=== PATIENT | male | born 1925 | race Caucasian/White ===

== ENCOUNTER 2017-02-27 11:03 | Emergency (ER) | payer MEDICARE, BC ==
[~2017-02-27] VITALS: Ht 172.7 cm; Wt 70.0 kg
[2017-02-27] MEDS ORDERED: EQ ASPIRIN325 M2 PO (11:30)
[2017-02-27] MEDS ORDERED: TERAZOSIN5 MG PO (11:30)
[2017-02-27] MEDS ORDERED: LISINOPRIL20 MG PO (11:32)
[2017-02-27] MEDS ORDERED: SIMVASTATIN40 MG PO (11:32)
[2017-02-27 11:43] LABS: URINE BILIRUBIN - DIPSTICK NEGATIVE (NEGATIVE); URINE BLOOD DIPSTICK NEGATIVE (NEGATIVE); URINE CLARITY CLEAR; URINE COLOR YELLOW; URINE GLUCOSE - DIPSTICK NEGATIVE (NEGATIVE); URINE KETONE NEGATIVE (NEGATIVE); URINE LEUK ESTERASE NEGATIVE (NEGATIVE); URINE NITRITE - DIPSTICK NEGATIVE (Negative); URINE PROTEIN - DIPSTICK NEGATIVE (NEG-TRACE); URINE SPECIFIC GRAVITY <=1.005; URINE UROBILINOGEN - DIPSTICK 0.2 E.U./dL (0.2)
[2017-02-27 11:46] LABS: HEMATOCRIT 37.6 % (39.0-50.0); HEMOGLOBIN 12.5 g/dl (14.0-18.0); IMMATURE GRANULOCYTES 0.6 % (0.0-1.0); MEAN CELL VOLUME 96.2 fL CALC (80.0-100.0); MEAN CORPUSCULAR HGB CONC 33.2 g/L CALC (32.0-36.0); NEUT# 6.62 thou/uL (1.82-7.42); RED BLOOD COUNT 3.91 mill/uL (4.70-6.10); RED CELL DISTRI WIDTH 15.4 % (11.5-15.5)
[2017-02-27 12:16] LABS: ALBUMIN 4.1 g/dL (3.2-5.0); ALKALINE PHOSPHATASE 67 u/l (38-126); ANION GAP 12 (6-22 (CALC)); BILIRUBIN, TOTAL 0.6 mg/dL (0.0-1.4); BUN 20 mg/dL (8-23); BUN/CREATININE RATIO 26 (12-20 (CALC)); CALCIUM 9.5 mg/dL (8.4-10.2); CARBON DIOXIDE 27 mmol/l (22-30); CHLORIDE 103 mmol/l (95-108); CREATININE 0.8 mg/dL (0.7-1.3); GFR > 60 ML/MIN (>=60 (CALC)); GFR FOR AFR.AMER. > 60 ML/MIN (>=60 (CALC)); GLUCOSE 79 mg/dL (82-115); POTASSIUM 4.6 mmol/l (3.5-5.1); SGOT/AST 27 u/l (19-48); SGPT/ALT 31 u/l (11-66); SODIUM 137 mmol/l (137-146)
[2017-02-27] MEDS ORDERED: ZOFRAN ODT4 MG PO (14:14)
[2017-02-27] MEDS ORDERED: ULTRAM50 M1 PO (14:14)
[2017-02-27 14:44] VITALS: BP 128/64
== END 2017-02-27 14:44 | disposition home or self-care (01) ==
LOC: ED 11:03
PROVIDERS: Emergency Medicine
DX: R10.12 Left upper quadrant pain (principal); N20.2 Calculus of kidney with calculus of ureter; Z87.442 Personal history of urinary calculi; I10 Essential (primary) hypertension
CPT/HCPCS: Q9967

== ENCOUNTER 2017-06-20 10:51 | Emergency (ER) | payer MEDICARE, BC ==
[~2017-06-20] VITALS: Ht 172.7 cm; Wt 75.0 kg
[~2017-06-20 10:51] MED LIST: EQ ASPIRIN325 M2 PO; LISINOPRIL20 MG PO; SIMVASTATIN40 MG PO; TERAZOSIN5 MG PO; ULTRAM50 M1 PO; ZOFRAN ODT4 MG PO
[2017-06-20] MEDS ORDERED: CLINDAMYCIN300 M1 PO (11:13)
[2017-06-20] MEDS ORDERED: EC-NAPROSYN500 MG PO (11:13)
[2017-06-20 11:17] VITALS: BP 138/60
== END 2017-06-20 11:40 | disposition home or self-care (01) ==
LOC: ED 10:51
DX: S90.32XA Contusion of left foot, initial encounter (principal); W22.8XXA Striking against or struck by other objects, initial encounter; Y93.9 Activity, unspecified; Y92.009 Unspecified place in unspecified non-institutional (private) residence as the place of occurrence of the external cause